=== PATIENT | male | born 1975 | race Caucasian/White ===

== ENCOUNTER 2022-12-27 17:33 | Emergency (ER) | payer MEDICAID ==
[~2022-12-27] VITALS: Ht 190.5 cm; Wt 75.0 kg
[2022-12-27] MEDS ORDERED: TETanus/Pertussis (Acell)/Diphther VAC/PF (Tdap-Adult) 0.5ml syringe IMVAC ONE (17:45)
[2022-12-27 19:11] VITALS: BP 114/66; PULSE 65; RESP 16; TEMP 98; O2SAT 99
--- NOTE | 2022-12-27 19:41 | NUR ---
AGREE WITH BILINGUAL PATIENT SUPPORT CASEWORKER GENERAL ASSESSMENT. PT IN STABLE CONDITION.
== END 2022-12-27 19:42 | disposition home or self-care (01) ==
LOC: ER 17:35
DX: S61.412A Laceration without foreign body of left hand, initial encounter (principal); X58.XXXA Exposure to other specified factors, initial encounter; Y93.89 Activity, other specified; Y92.89 Other specified places as the place of occurrence of the external cause; Y99.8 Other external cause status
CPT/HCPCS: 12001; 90471; 90715; 99283